=== PATIENT | male | born 1995 | race Hispanic/Latino ===

== ENCOUNTER 2018-09-19 09:34 | Emergency (ER) | payer MEDICAID, OTHER | END 2018-09-19 10:22 | LOC: EDH 09:34 | DX: F12.10 Cannabis abuse, uncomplicated (principal); Z72.0 Tobacco use ==

== ENCOUNTER 2018-09-19 12:34 | Emergency (ER) | payer MEDICAID, OTHER | END 2018-09-19 13:45 | disposition home or self-care (01) | LOC: EDH 12:34 | DX: S00.83XA Contusion of other part of head, initial encounter (principal); Z72.0 Tobacco use; W18.39XA Other fall on same level, initial encounter; Y93.89 Activity, other specified; Y92.89 Other specified places as the place of occurrence of the external cause; Y99.8 Other external cause status ==